=== PATIENT | male | born 1965 | race Hispanic/Latino ===

== ENCOUNTER 2019-09-17 08:34 | Inpatient (IN) | payer OTHER, SELFPAY ==
[2019-09-17] MEDS ORDERED: Acetaminophen 500 MG TAB ONE (09:03)
--- NOTE | 2019-09-17 09:44 | RAD ---
CHEST ONE VIEW: HISTORY: Shortness of breath. Cough. Sore throat. Fever. FINDINGS: Poor inspiration. Patchy alveolar, linear and ground glass opacity changes in the mid and lower lung zones. Heart size is at the upper range of normal. IMPRESSION: 1. Poor inspiration. 2. Patchy bilateral pneumonia, which certainly could represent atypical pneumonia including the viral pneumonias. POS: [facility]
[2019-09-17] MEDS ORDERED: Cefepime 2 GM VIAL ONE ×2 (09:47→09:53)
[2019-09-17] MEDS ORDERED: Azithromycin 500 MG VIAL ONE ×2 (09:47→09:53)
[2019-09-17] MEDS ORDERED: Ibuprofen 200 MG TAB ONE ×2 (09:47→09:53)
[2019-09-17 09:50] LABS: #Lymphocytes 1.3 thou/uL (1.20-3.40); #Monocytes 0.3 thou/uL (0.11-0.59); #Neutrophils 6.3 thou/uL (1.40-6.50); %Basophils 0.3 % (0.0-1.0); %Monocytes 3.9 % (0.0-10.0); %Neutrophils 79.8 % (42.0-75.0); Hemoglobin 15.6 g/dL (14.0-18.0); Mean Corpuscular HGB CONC 35.7 g/dL (32.0-36.0); Mean Corpuscular Volume 92.5 fL (78.0-98.0); Mean Platelet Volume 8.1 fL (7.4-10.4); Platelet Count 136 thou/uL (130-400); RBC Distribution Width 11.3 % (11.5-14.5); Red Blood Cell (RBC) Count 4.72 mill/uL (4.70-6.10); White Blood Cell (WBC) Count 7.8 thou/uL (4.8-10.8)
[2019-09-17] MEDS ORDERED: Albuterol 200 PUFF (6.7GM INHALER) ONE (09:50)
[2019-09-17 09:52] LABS: Base Excess-Venous 1.2 mmol/L (-2.0 to 3.0); Bicarbonate (HCO3v) 23.6 mmol/L (22.0-28.0); CO2 Tension (PvCO2) 30.7 mmHg (40.0-50.0); Calcium, Ionized 0.99 mmol/L (See Comments:); Chloride 99 mmol/L (98-107); Hemoglobin - Calc 15.3 g/dL (14.0-18.0); Potassium 3.8 mmol/L (3.5-5.1); Sodium 136 mmol/L (138-145); T. Carbon Dioxide 24.5 mmol/L (22.0-28.0); vO2 Saturation-calc 99.2 % (60.0-85.0)
[2019-09-17 10:11] LABS: ALT (SGPT) 33 U/L (8-55); AST (SGOT) 25 U/L (5-34); Albumin 4.2 g/dL (3.5-5.0); Alkaline Phosphatase 89 U/L (40-110); Anion Gap 17 mmol/L (10-20); BUN (Urea Nitrogen) 9 mg/dL (8.4-25.7); Bilirubin, Total 0.8 mg/dL (0.2-1.2); Calc. Creatinine Clearance 0 mL/min (70-130); Calcium 8.9 mg/dL (7.8-10.44); Carbon Dioxide 22 mmol/L (22-29); Chloride 100 mmol/L (98-107); Estimated GFR-MDRD Greater than 90; Globulin 3.9 g/dL (2.4-3.5); Glucose 243 mg/dL (70-105); Potassium 3.6 mmol/L (3.5-5.1); Protein, Total 8.1 g/dL (6.0-8.3); Sodium 135 mmol/L (136-145)
[2019-09-17 10:12] LABS: Bacteria/HPF None Seen HPF (None Seen); Bilirubin Negative (Negative); Blood, Urine Negative (Negative); Clarity Clear (Clear); Glucose, Urine (Dipstick) 500 mg/dL (Negative); Leukocyte Negative Leu/uL (Negative); Mucous/LPF 1+ LPF (<2+); Nitrite Negative (Negative); Protein, Urine (Dipstick) Greater than 600 mg/dL (Neg-Trace); RBC/HPF 0-3 HPF (0-3); Squamous Epithelial None Seen HPF (0-3); Urobilinogen Normal mg/dL (Less than 2)
[2019-09-17] MEDS ORDERED: Sodium Chloride 0.9% 1,000 ML IV SCH (10:15)
[2019-09-17] MEDS ORDERED: Ondansetron ODT 4 MG TAB SL PRN (10:15)
[2019-09-17] MEDS ORDERED: Acetaminophen 325 MG TAB PO PRN (10:15)
[2019-09-17] MEDS ORDERED: HYDROcodone/Acetaminophen 5/325 mg Tablet PO PRN ×3 (10:15→13:02)
[2019-09-17] MEDS ORDERED: Ondansetron PF 4 MG/2 ML Vial IVP PRN ×2 (10:15→13:02)
[2019-09-17 12:09] VITALS: BMI 28.3
[2019-09-17] MEDS ORDERED: Senokot S 8.6-50 MG TAB PO PRN (13:02)
[2019-09-17] MEDS ORDERED: Acetaminophen 650 MG Suppository PR PRN (13:02)
[2019-09-17] MEDS ORDERED: Ondansetron ODT 4 MG TAB PO PRN (13:02)
[2019-09-17] MEDS ORDERED: HumaLOG 300 UNITS/3 ML VIAL SC PRN ×2 (13:15)
[2019-09-17] MEDS ORDERED: Dextrose 50% Abboject 50 ML SYRINGE SLOW IVP PRN (13:15)
[2019-09-17] MEDS ORDERED: Dextrose 5% in Water 1,000 ML IV PRN (13:15)
--- NOTE | 2019-09-17 13:57 | HP ---
PRIMARY CARE PHYSICIAN: [place]. CHIEF COMPLAINT: Cough and shortness of breath. HISTORY OF PRESENT ILLNESS: This is a 54-year-old male with no past medical history, who comes in with 4-day history of cough, difficulty breathing, some central chest pain with a cough, and fever up to 102. The patient denies any sick contacts or known COVID contacts. He did present to the emergency room with an O2 saturation on room air of 88% and significant tachypnea up to 36 breaths per minute. He was noted to have some possible wheezing also by ER and he was given a couple of puffs of albuterol. The patient's temperature on presentation spiked to 102.7. This was treated with acetaminophen. He was also given some oxygen and felt much better. REVIEW OF SYSTEMS: CONSTITUTIONAL: See HPI. EYES: No double vision or blurry vision. ENT: No congestion, drainage, or sore throat. CARDIOVASCULAR: See HPI. No palpitations or racing heart. PULMONARY: See HPI. GASTROINTESTINAL: No abdominal pain. No nausea or vomiting. No diarrhea or constipation. GENITOURINARY: No dysuria or hematuria. MUSCULOSKELETAL: He has had some diffuse body aches. SKIN: No rashes or other lesions noted. NEUROLOGIC: No numbness, tingling, or focal weakness. PAST MEDICAL HISTORY: None. PAST SURGICAL HISTORY: Cholecystectomy. SOCIAL HISTORY: No tobacco, alcohol, or illicit drug use. He is . He is a full code. Should he be incapacitated, his would be his medical decision maker; her name is Cathryn Harrington. FAMILY HISTORY: No known family medical problems. ALLERGIES: NO KNOWN DRUG ALLERGIES. CURRENT MEDICATIONS: NyQuil p.r.n. PHYSICAL EXAMINATION: VITAL SIGNS: Blood pressure 120/70, pulse 80, respirations 24, O2 saturation 92% on room air, temperature 97.9. GENERAL: This is a well-developed, well-nourished male, in no acute distress. HEENT: Pupils are equal, round, and reactive to light. Oropharynx clear without lesions, erythema, or exudates. NECK: Supple. No lymphadenopathy. No thyroid nodules or enlargement. HEART: Regular rate and rhythm. No murmurs, rubs, or gallops. LUNGS: The patient has good breath sounds throughout, maybe an occasional wheeze now. No increased work of breathing. ABDOMEN: Soft, nontender to palpation. Normoactive bowel sounds. No hepatosplenomegaly or other masses. EXTREMITIES: No clubbing, cyanosis, or edema. SKIN: No rashes or other lesions noted. NEUROLOGIC: Intact strength and sensation in all extremities. No facial droop. PSYCHIATRIC: Alert and oriented x3. Normal mood and affect. LABORATORY DATA: CBC grossly within normal limits, though lymphocyte count is a little bit low at 16%, total lymphocytes 1300. Venous blood gas with good O2 level on nasal cannula oxygen. No acidosis. Complete metabolic panel is notable for a sodium of 135, glucose of 243; the rest of his CMP was normal. His lactic acid was normal. Urinalysis showed 500 glucose, positive for proteins and trace ketones, 4 to 6 white blood cells, no bacteria. Chest x-ray: I did review the chest x-ray done in the emergency room along with the radiologist's report. It does show bilateral patchy viral-appearing infiltrates consistent with viral pneumonia versus COVID pneumonia. COVID testing has been sent from the emergency room. ASSESSMENT: 1. Acute viral pneumonia with acute hypoxic respiratory failure, improved after inhaler and with some nasal cannula oxygen. The patient has symptoms consistent with a COVID-19 infection. We have sent off a swab to test for this and are putting him on COVID precautions. We will give oxygen as needed. Currently, he is off nasal cannula oxygen and breathing easily. Given his response to inhaler in the emergency room, I will give him albuterol 2 puffs every 6 hours as needed for coughing, wheezing, and shortness of breath. We will also give him some Tessalon Perles for the cough. We will watch him closely for any signs of deterioration. 2. Hyperglycemia without a diagnosis of diabetes. I suspect the patient has underlying diabetes mellitus type 2 from unknown duration. I will get a hemoglobin A1c on him and do fingerstick blood sugars q.a.c. and at bedtime with a low insulin sliding scale and we will also put him on a diabetic diet. 3. Gastrointestinal prophylaxis. We will put the patient on Pepcid twice a day. 4. Deep venous thrombosis prophylaxis. We will put the patient on Lovenox subcu. 5. Code Status: The patient is full code. Should he be incapacitated, his would be his medical decision maker. Her name is Cathryn Harrington. Job ID: [id number]
[2019-09-17] MEDS: Benzonatate 100 MG CAP PO SCH ×2 (15:52→20:24)
[2019-09-17] MEDS: Sodium Chloride 0.9% 1,000 ML IV SCH (15:53)
[2019-09-17] MEDS: Guaifenesin DM 100-10/5 ML UDCUP PO PRN (15:53)
[2019-09-17] MEDS: Acetaminophen 325 MG TAB PO PRN ×2 (15:53→20:35)
[2019-09-17] MEDS: Famotidine 20 MG TAB PO SCH (20:24)
[2019-09-18] MEDS: Acetaminophen 325 MG TAB PO PRN ×3 (00:04→08:54)
[2019-09-18] MEDS: Sodium Chloride 0.9% 1,000 ML IV SCH ×2 (05:23→08:54)
[2019-09-18 06:32] LABS: #Basophils 0.1 thou/uL (0.0-0.2); #Lymphocytes 1.2 thou/uL (1.20-3.40); #Monocytes 0.3 thou/uL (0.11-0.59); #Neutrophils 6.4 thou/uL (1.40-6.50); %Basophils 1.1 % (0.0-1.0); %Eosinophils 0.4 % (0.0-10.0); %Monocytes 4.2 % (0.0-10.0); %Neutrophils 79.3 % (42.0-75.0); Hemoglobin 13.3 g/dL (14.0-18.0); Mean Corpuscular HGB CONC 34.1 g/dL (32.0-36.0); Mean Corpuscular Hemoglobin 32.4 pg (27.0-31.0); Mean Platelet Volume 8.3 fL (7.4-10.4); Platelet Count 132 thou/uL (130-400); RBC Distribution Width 11.3 % (11.5-14.5); Red Blood Cell (RBC) Count 4.11 mill/uL (4.70-6.10); White Blood Cell (WBC) Count 8.1 thou/uL (4.8-10.8)
[2019-09-18 06:40] LABS: Hemoglobin A1c 8.2 % (4.0-6.0)
[2019-09-18 06:50] LABS: Anion Gap 14 mmol/L (10-20); BUN (Urea Nitrogen) 9 mg/dL (8.4-25.7); Calc. Creatinine Clearance 147 mL/min (70-130); Calcium 8.1 mg/dL (7.8-10.44); Carbon Dioxide 23 mmol/L (22-29); Chloride 108 mmol/L (98-107); Estimated GFR-MDRD Greater than 90; Glucose 158 mg/dL (70-105); Potassium 3.7 mmol/L (3.5-5.1); Sodium 141 mmol/L (136-145)
--- NOTE | 2019-09-18 07:29 | PDOC.HOSPP ---
- Subjective Encounter Date: 09/18/19 Encounter Time: 11:30 Subjective: Patient with continued cough, pain in right upper back and shoulder with cough, fever, and shortness of breath. Now requiring 2L NC O2. - Objective Vital Signs & Weight: Vital Signs (12 hours) Temp Pulse Resp BP BP Pulse Ox 09/18/19 05:31 99.3 F 81 20 139/77 95 09/18/19 00:02 100.0 F H 82 20 130/86 96 09/17/19 20:15 102.1 F H 92 20 146/75 H 91 L Weight Weight 169 lb 15.622 oz Result Diagrams: 09/18/19 06:12 09/18/19 06:12 Additional Labs: Accuchecks 09/18/19 09/17/19 09/17/19 05:24 20:34 17:31 POC Glucose 148 H 177 H 185 H Hospitalist ROS - Review of Systems Constitutional: reports: fever Respiratory: reports: cough, shortness of breath Cardiovascular: reports: chest pain. denies: palpitations, orthopnea Gastrointestinal: denies: nausea, vomiting, abdominal pain - Medication Medications: Active Medications Generic Name Dose Route Start Last Admin Trade Name Freq PRN Reason Stop Dose Admin Acetaminophen 650 mg 09/17/19 13:02 09/18/19 00:04 Tylenol PO 650 mg Q4H PRN Administration Headache/Fever/Mild Pain (1-3) Benzonatate 200 mg 09/17/19 15:00 09/17/19 20:24 Tessalon PO 200 mg TID MYESHA Administration Famotidine 20 mg 09/17/19 21:00 09/17/19 20:24 Pepcid PO 20 mg BID MYESHA Administration Guaifenesin/Dextromethorphan 15 ml 09/17/19 13:02 09/17/19 15:53 Robitussin Dm PO 15 ml Q4H PRN Administration Cough Sodium Chloride 1,000 mls @ 50 mls/hr 09/17/19 13:02 09/18/19 05:23 Normal Saline 0.9% IV 1,000 mls .Q20H MYESHA Administration Insulin Human Lispro 0 units 09/17/19 13:15 09/17/19 17:31 Humalog SC 2 unit .MILD SLIDING SCALE PRN Administration Mild Correctional Scale - Exam General Appearance: NAD, awake alert ENT: moist mucosa Heart: RRR, no murmur, no gallops, no rubs Respiratory: CTAB, no wheezes, no rales, no ronchi Respiratory - other findings: recurrent coughing fits when taking deep breaths or talking Gastrointestinal: soft, non-tender, non-distended, normal bowel sounds Psychiatric: normal affect, normal behavior, A&O x 3 Hosp A/P (1) Viral pneumonia Code(s): J12.9 - VIRAL PNEUMONIA, UNSPECIFIED Status: Acute (2) Acute respiratory failure with hypoxia Code(s): J96.01 - ACUTE RESPIRATORY FAILURE WITH HYPOXIA Status: Acute (3) Diabetes mellitus type 2 in nonobese Code(s): E11.9 - TYPE 2 DIABETES MELLITUS WITHOUT COMPLICATIONS Status: Acute - Plan HbA1c elevated above 8, patient has diabetes. Will start Metformin. Supportive care, awaiting COVID-19 testing, likely positive. DVT proph: Lovenox GI proph: Pepcid
[2019-09-18] MEDS: Guaifenesin DM 100-10/5 ML UDCUP PO PRN (08:53)
[2019-09-18] MEDS: Famotidine 20 MG TAB PO SCH ×2 (08:54→21:15)
[2019-09-18] MEDS: metFORMIN 500 MG TAB PO SCH ×2 (08:54→17:38)
[2019-09-18] MEDS: Benzonatate 100 MG CAP PO SCH ×3 (08:54→21:15)
[2019-09-18] MEDS: Enoxaparin Sodium 40 MG/0.4 ML SYRINGE SC SCH (08:54)
[2019-09-18] MEDS: PROVENTIL INHALER 6.7 G (200 INHALATIONS) INH PRN ×2 (13:11→22:39)
[2019-09-18] MEDS: HYDROcodone/Acetaminophen 5/325 mg Tablet PO PRN (22:37)
[2019-09-19] MEDS: Guaifenesin DM 100-10/5 ML UDCUP PO PRN (00:29)
[2019-09-19] MEDS: HYDROcodone/Acetaminophen 5/325 mg Tablet PO PRN (05:45)
[2019-09-19] MEDS: PROVENTIL INHALER 6.7 G (200 INHALATIONS) INH PRN (05:45)
[2019-09-19] MEDS: Sodium Chloride 0.9% 1,000 ML IV SCH (05:55)
--- NOTE | 2019-09-19 07:49 | PDOC.HOSPP ---
- Subjective Encounter Date: 09/19/19 Encounter Time: 10:00 Subjective: SOB stable, cough improved some, no more chest/back pain. - Objective Vital Signs & Weight: Vital Signs (12 hours) Temp Pulse Resp BP Pulse Ox 09/19/19 05:45 70 20 95 09/19/19 05:34 98.3 F 70 20 143/81 H 95 09/19/19 00:35 98 F 69 22 H 130/77 98 09/18/19 22:39 84 09/18/19 21:35 98.7 F 87 24 H 146/89 H 93 L 09/18/19 20:00 93 L Weight Weight 169 lb 15.622 oz I&O: 09/18/19 09/19/19 09/20/19 06:59 06:59 06:59 Intake Total 1200 Output Total 650 Balance 550 Result Diagrams: 09/18/19 06:12 09/18/19 06:12 Additional Labs: Accuchecks 09/19/19 09/18/19 09/18/19 05:54 21:23 17:47 POC Glucose 147 H 120 H 160 H 09/18/19 13:21 POC Glucose 127 H Hospitalist ROS - Review of Systems Constitutional: denies: fever, chills Respiratory: reports: cough, shortness of breath Cardiovascular: denies: chest pain, palpitations, orthopnea Gastrointestinal: denies: nausea, vomiting, abdominal pain - Medication Medications: Active Medications Generic Name Dose Route Start Last Admin Trade Name Freq PRN Reason Stop Dose Admin Acetaminophen 650 mg 09/17/19 13:02 09/18/19 08:54 Tylenol PO 650 mg Q4H PRN Administration Headache/Fever/Mild Pain (1-3) Hydrocodone Bitart/Acetaminophen 1 tab 09/17/19 13:02 09/19/19 05:45 [place] 5/325 PO 1 tab Q4H PRN Administration Moderate Pain (4-6) Albuterol Sulfate 2 puff 09/17/19 13:07 09/19/19 05:45 Proventil Hfa INH 2 puff Q6H PRN Administration SOB &/or Wheezing Benzonatate 200 mg 09/17/19 15:00 09/18/19 21:15 Tessalon PO 200 mg TID MYESHA Administration Enoxaparin Sodium 40 mg 09/18/19 09:00 09/18/19 08:54 Lovenox SC 40 mg 0900 MYESHA Administration Famotidine 20 mg 09/17/19 21:00 09/18/19 21:15 Pepcid PO 20 mg BID MYESHA Administration Guaifenesin/Dextromethorphan 15 ml 09/17/19 13:02 09/19/19 00:29 Robitussin Dm PO 15 ml Q4H PRN Administration Cough Sodium Chloride 1,000 mls @ 50 mls/hr 09/17/19 13:02 09/19/19 05:55 Normal Saline 0.9% IV Not Given .Q20H MYESHA Insulin Human Lispro 0 units 09/17/19 13:15 09/17/19 17:31 Humalog SC 2 unit .MILD SLIDING SCALE PRN Administration Mild Correctional Scale Metformin HCl 500 mg 09/18/19 08:00 09/18/19 17:38 Glucophage PO 500 mg BID-WM MYESHA Administration Sodium Chloride 10 ml 09/18/19 09:00 09/18/19 21:16 Flush - Normal Saline IVF 10 ml Q12HR MYESHA Administration - Exam General Appearance: NAD, awake alert ENT: moist mucosa Heart: RRR, no murmur, no gallops, no rubs Respiratory - other findings: bibasilar crackles, not deep inspiration due to triggering coughing Gastrointestinal: soft, non-tender, non-distended, normal bowel sounds Psychiatric: normal affect, normal behavior, A&O x 3 Hosp A/P (1) Viral pneumonia Code(s): J12.9 - VIRAL PNEUMONIA, UNSPECIFIED Status: Acute (2) Acute respiratory failure with hypoxia Code(s): J96.01 - ACUTE RESPIRATORY FAILURE WITH HYPOXIA Status: Acute (3) Diabetes mellitus type 2 in nonobese Code(s): E11.9 - TYPE 2 DIABETES MELLITUS WITHOUT COMPLICATIONS Status: Acute - Plan HbA1c elevated above 8, patient has diabetes. Blood sugars improved in diabetic diet and Metformin. COVID-19 positive. with symptoms also. Patient needing low dose O2, supportive therapy. Hopefully will improve over the next week. Monitor closely for deterioration. DVT proph: Lovenox GI proph: Pepcid
[2019-09-19] MEDS: Famotidine 20 MG TAB PO SCH ×2 (10:11→21:04)
[2019-09-19] MEDS: Enoxaparin Sodium 40 MG/0.4 ML SYRINGE SC SCH (10:11)
[2019-09-19] MEDS: Benzonatate 100 MG CAP PO SCH ×3 (10:11→21:04)
[2019-09-19] MEDS: metFORMIN 500 MG TAB PO SCH ×2 (10:11→17:24)
[2019-09-20] MEDS: Sodium Chloride 0.9% 1,000 ML IV SCH ×3 (01:05→19:40)
--- NOTE | 2019-09-20 07:56 | PDOC.HOSPP ---
- Subjective Encounter Date: 09/20/19 Encounter Time: 09:30 Subjective: Patient with continued cough, worse when ambulated. SOB unchanged. No fever. Overall doing ok. - Objective Vital Signs & Weight: Vital Signs (12 hours) Temp Pulse Resp BP Pulse Ox 09/20/19 04:55 98 09/20/19 00:00 98.9 F 70 24 H 143/80 H 09/19/19 20:00 98.9 F 72 20 142/75 H 95 Weight Weight 169 lb 15.622 oz I&O: 09/19/19 09/20/19 09/21/19 06:59 06:59 06:59 Intake Total 1200 Output Total 650 Balance 550 Result Diagrams: 09/18/19 06:12 09/18/19 06:12 Additional Labs: Accuchecks 09/19/19 09/19/19 09/19/19 21:16 16:15 14:04 POC Glucose 191 H 126 H 134 H Hospitalist ROS - Review of Systems Constitutional: denies: fever, chills Respiratory: reports: cough, SOB with excertion. denies: shortness of breath Cardiovascular: denies: chest pain, palpitations, orthopnea Gastrointestinal: denies: nausea, vomiting, abdominal pain - Medication Medications: Active Medications Generic Name Dose Route Start Last Admin Trade Name Freq PRN Reason Stop Dose Admin Acetaminophen 650 mg 09/17/19 13:02 09/18/19 08:54 Tylenol PO 650 mg Q4H PRN Administration Headache/Fever/Mild Pain (1-3) Hydrocodone Bitart/Acetaminophen 1 tab 09/17/19 13:02 09/19/19 05:45 [place] 5/325 PO 1 tab Q4H PRN Administration Moderate Pain (4-6) Albuterol Sulfate 2 puff 09/17/19 13:07 09/19/19 05:45 Proventil Hfa INH 2 puff Q6H PRN Administration SOB &/or Wheezing Benzonatate 200 mg 09/17/19 15:00 09/19/19 21:04 Tessalon PO 200 mg TID MYESHA Administration Enoxaparin Sodium 40 mg 09/18/19 09:00 09/19/19 10:11 Lovenox SC 40 mg 0900 MYESHA Administration Famotidine 20 mg 09/17/19 21:00 09/19/19 21:04 Pepcid PO 20 mg BID MYESHA Administration Guaifenesin/Dextromethorphan 15 ml 09/17/19 13:02 09/19/19 00:29 Robitussin Dm PO 15 ml Q4H PRN Administration Cough Sodium Chloride 1,000 mls @ 50 mls/hr 09/17/19 13:02 09/20/19 01:05 Normal Saline 0.9% IV Not Given .Q20H MYESHA Insulin Human Lispro 0 units 09/17/19 13:15 09/17/19 17:31 Humalog SC 2 unit .MILD SLIDING SCALE PRN Administration Mild Correctional Scale Metformin HCl 500 mg 09/18/19 08:00 09/19/19 17:24 Glucophage PO 500 mg BID-WM MYESHA Administration Sodium Chloride 10 ml 09/18/19 09:00 09/19/19 21:05 Flush - Normal Saline IVF 10 ml Q12HR MYESHA Administration - Exam General Appearance: NAD, awake alert ENT: moist mucosa Heart: RRR, no murmur, no gallops, no rubs Respiratory: no wheezes, no ronchi Respiratory - other findings: some crackles in bilateral bases Gastrointestinal: soft, non-tender, non-distended, normal bowel sounds Psychiatric: normal affect, normal behavior, A&O x 3 Hosp A/P (1) COVID-19 Code(s): U07.1 - COVID-19 Status: Acute (2) Viral pneumonia Code(s): J12.9 - VIRAL PNEUMONIA, UNSPECIFIED Status: Acute (3) Acute respiratory failure with hypoxia Code(s): J96.01 - ACUTE RESPIRATORY FAILURE WITH HYPOXIA Status: Acute (4) Diabetes mellitus type 2 in nonobese Code(s): E11.9 - TYPE 2 DIABETES MELLITUS WITHOUT COMPLICATIONS Status: Acute - Plan HbA1c elevated above 8, patient has diabetes. Blood sugars improved with diabetic diet and Metformin. COVID-19 positive. with symptoms also. Patient needing low dose O2, supportive therapy. Hopefully will improve over the next week. Monitor closely for deterioration. DVT proph: Lovenox GI proph: Pepcid
[2019-09-20] MEDS: metFORMIN 500 MG TAB PO SCH ×2 (08:38→17:21)
[2019-09-20] MEDS: Guaifenesin DM 100-10/5 ML UDCUP PO PRN (08:38)
[2019-09-20] MEDS: Famotidine 20 MG TAB PO SCH ×2 (08:38→19:39)
[2019-09-20] MEDS: Enoxaparin Sodium 40 MG/0.4 ML SYRINGE SC SCH ×2 (08:38→09:07)
[2019-09-20] MEDS: Benzonatate 100 MG CAP PO SCH ×3 (08:38→19:39)
[2019-09-21] MEDS: Famotidine 20 MG TAB PO SCH ×2 (08:11→21:30)
[2019-09-21] MEDS: Benzonatate 100 MG CAP PO SCH ×3 (08:11→21:30)
[2019-09-21] MEDS: metFORMIN 500 MG TAB PO SCH ×2 (08:12→15:36)
[2019-09-21] MEDS: Enoxaparin Sodium 40 MG/0.4 ML SYRINGE SC SCH (08:12)
--- NOTE | 2019-09-21 15:11 | PDOC.HOSPP ---
- Subjective Encounter Date: 09/21/19 Encounter Time: 15:00 Subjective: f/u for COVID viral infection tx supportively with bronchodilators but still with significant cough and SOB with minimal movement. Remains off O2 per nursing. - Objective Vital Signs & Weight: Vital Signs (12 hours) Temp Pulse Resp BP Pulse Ox 09/21/19 12:45 98.3 F 69 16 135/79 94 L 09/21/19 08:20 98.2 F 86 18 138/77 94 L 09/21/19 04:18 97.9 F 67 18 94 L 09/21/19 04:00 94 L Weight Weight 169 lb 15.622 oz I&O: 09/20/19 09/21/19 09/22/19 06:59 06:59 06:59 Intake Total 1510 Output Total 200 Balance 1310 Result Diagrams: 09/18/19 06:12 09/18/19 06:12 Additional Labs: Accuchecks 09/21/19 09/21/19 09/20/19 12:39 03:49 19:55 POC Glucose 109 128 H 174 H 09/20/19 17:30 POC Glucose 133 H Hospitalist ROS - Medication Medications: Active Medications Generic Name Dose Route Start Last Admin Trade Name Freq PRN Reason Stop Dose Admin Acetaminophen 650 mg 09/17/19 13:02 09/18/19 08:54 Tylenol PO 650 mg Q4H PRN Administration Headache/Fever/Mild Pain (1-3) Hydrocodone Bitart/Acetaminophen 1 tab 09/17/19 13:02 09/19/19 05:45 [place] 5/325 PO 1 tab Q4H PRN Administration Moderate Pain (4-6) Albuterol Sulfate 2 puff 09/17/19 13:07 09/19/19 05:45 Proventil Hfa INH 2 puff Q6H PRN Administration SOB &/or Wheezing Benzonatate 200 mg 09/17/19 15:00 09/21/19 08:11 Tessalon PO 200 mg TID MYESHA Administration Enoxaparin Sodium 40 mg 09/18/19 09:00 09/21/19 08:12 Lovenox SC Not Given 0900 MYESHA Famotidine 20 mg 09/17/19 21:00 09/21/19 08:11 Pepcid PO 20 mg BID MYESHA Administration Guaifenesin/Dextromethorphan 15 ml 09/17/19 13:02 09/19/19 00:29 Robitussin Dm PO 15 ml Q4H PRN Administration Cough Sodium Chloride 1,000 mls @ 50 mls/hr 09/17/19 13:02 09/20/19 19:40 Normal Saline 0.9% IV 1,000 mls .Q20H MYESHA Administration Insulin Human Lispro 0 units 09/17/19 13:15 09/17/19 17:31 Humalog SC 2 unit .MILD SLIDING SCALE PRN Administration Mild Correctional Scale Metformin HCl 500 mg 09/18/19 08:00 09/21/19 08:12 Glucophage PO 500 mg BID-WM MYESHA Administration Sodium Chloride 10 ml 09/18/19 09:00 09/21/19 08:12 Flush - Normal Saline IVF Not Given Q12HR MYESHA - Exam General Appearance: NAD, awake alert Eye: PERRL, anicteric sclera ENT: normocephalic atraumatic, no oropharyngeal lesions Neck: supple, symmetric, no JVD, no thyromegaly, no lymphadenopathy Heart: RRR, no murmur, no gallops, no rubs, normal peripheral pulses Respiratory: tachypneic Respiratory - other findings: few rhonchi and exp wheeze Gastrointestinal: soft, non-tender, non-distended, normal bowel sounds, no palpable masses Extremities: no cyanosis, no clubbing, no edema Skin: normal turgor, no lesions, no rashes Neurological: cranial nerve grossly intact, no new deficit Musculoskeletal: normal tone, normal strength, no muscle wasting Psychiatric: normal affect, A&O x 3 Hosp A/P (1) COVID-19 Code(s): U07.1 - COVID-19 Status: Acute Plan: Supportive mgmt, resp isolation, bronchodilators (2) Viral pneumonia Code(s): J12.9 - VIRAL PNEUMONIA, UNSPECIFIED Status: Acute (3) Acute respiratory failure with hypoxia Code(s): J96.01 - ACUTE RESPIRATORY FAILURE WITH HYPOXIA Status: Acute Plan: Wean off O2 as tolerated, change Albuterol MDI 2puffs q4h (4) Diabetes mellitus type 2 in nonobese Code(s): E11.9 - TYPE 2 DIABETES MELLITUS WITHOUT COMPLICATIONS Status: Chronic - Plan out of bed/ambulate, DVT proph w/SCDs Stable currently Change Albuterol MDI 2 puffs q4h OOB/ambulate Saline lock IVF's Respiratory Isolation Likely home in 24h
[2019-09-21] MEDS ORDERED: PROVENTIL INHALER 6.7 G (200 INHALATIONS) INH SCH (15:15)
[2019-09-21] MEDS: Albuterol 200 PUFF (6.7GM INHALER) INH SCH ×2 (17:50→23:19)
[2019-09-22] MEDS: Albuterol 200 PUFF (6.7GM INHALER) INH SCH ×2 (02:30→06:46)
[2019-09-22] MEDS: Famotidine 20 MG TAB PO SCH (07:29)
[2019-09-22] MEDS: metFORMIN 500 MG TAB PO SCH (07:29)
[2019-09-22] MEDS: Benzonatate 100 MG CAP PO SCH (07:29)
[2019-09-22 07:50] VITALS: BP 144/79; TEMP 98.6
[2019-09-22] MEDS: Enoxaparin Sodium 40 MG/0.4 ML SYRINGE SC SCH (08:53)
--- NOTE | 2019-09-23 00:55 | PQF ---
JOVAN CHRISTINE CHARLES [id number] CLINICAL DOCUMENTATION CLARIFICATION FORM: POST DISCHARGE Addendum to original discharge summary date: ____ Late entry note date: __ DATE: 09/23/19 ATTN:Matthew Eng Please exercise your independent, professional judgment in responding to the clarification form. Clinical indicators are provided on the bottom of this form for your review Can you please further clarify if Sepsis is ruled in or ruled out? Sepsis [ ] Ruled in diagnosis [ ] Continue to treat [ ] Resolved [ x ] Ruled out diagnosis [ ] Cannot rule out diagnosis [ ] Other diagnosis [ ] Unable to determine In addition, please specify: Present on Admission (POA): [ ] Yes [ x ] No [ ] Unable to determine For continuity of documentation, please document condition throughout progress notes and discharge summary. Thank You. CLINICAL INDICATORS - SIGNS / SYMPTOMS / LABS ED Provide pg.2- Febrile, temperature of 102.7 ED Provider pg.4- Sepsis H and P pg.1- Significant tachypnea up to 36 breaths per minute H and P pg.2- Vital signs: BP 120/70, pulse 80, respiration 24, Temp 97.9 Laboratory- WBC 7.8, 8.1 RISK FACTORS Acute viral pneumonia- H and P pg.2 Acute hypoxic respiratory failure- H and P pg.2 COVID19- Hospitalist PN pg.2 TREATMENTS Chest X ray 09/16 IV Fluids-MAR Respiratory Isolation- Hospitalist PN pg.5 Oxygen Supplementation Azithromycin 500mg IV- MAR Cefepime HCl 2g IV- MAR (This form is maintained as a part of the permanent medical record) 2014 [employer] All Rights Reserved [email or web address]
--- NOTE | 2019-09-23 01:16 | DIS ---
DATE OF ADMISSION: 09/17/2019 DATE OF DISCHARGE: 09/22/2019 DISCHARGE DIAGNOSES: 1. COVID-19 viral pneumonia, improved. 2. Acute hypoxic respiratory failure, improved. 3. Diabetes mellitus type 2, new diagnosis. CONSULTATIONS: None. PERTINENT LABORATORY AND X-RAY FINDINGS: Hemoglobin A1c 8.2. Lactic acid level 2.0. CBC within normal limits. COVID-19 PCR positive, 09/17/2019. Blood cultures x2 dated 09/17/2019 showed no growth at 48 hours. Influenza A and B antigen negative, 09/17/2019. Urine culture dated 09/17/2019 showed 50-75 colonies of mixed skin and enteric uri. Portable chest x-ray dated 09/17/2019 showed patchy bilateral infiltrates consistent with pneumonia. HOSPITAL COURSE: The patient was initially admitted after presenting with increased cough and shortness of breath with fever up to 102 degrees Fahrenheit. The patient was evaluated including chest imaging showing bilateral infiltrates. Atypical in presentation concerning for potential viral pneumonia. The patient underwent COVID-19 PCR, which was positive as stated previously and placed on respiratory isolation. The patient did receive general pulmonary supportive management in addition to oxygen supplementation and bronchodilator therapy with albuterol metered-dose inhaler. The patient slowly weaned off oxygen supplementation and overall symptomatology improved with supportive management. The patient was also noted with hyperglycemia during the hospital course with hemoglobin A1c confirming mild diabetes mellitus. The patient was initiated on metformin 500 mg b.i.d. and may need additional titration on an ongoing basis after discharge. Overall, the patient did clinically stabilize with general pulmonary supportive management. I have examined the patient at the time of discharge and discussed followup instructions. The patient verbalized understanding and agreement ready for discharge, 09/22/2019. DISCHARGE MEDICATIONS: 1. Albuterol metered dose inhaler, 2 puffs inhaled q.4 hours p.r.n. 2. Metformin 500 mg p.o. b.i.d. FOLLOWUP: The patient may follow up with [facility] in 7 days. CONDITION ON DISCHARGE: Stable. ACTIVITY: Ad-guicho. SPECIAL INSTRUCTIONS: The patient given instructions regarding ongoing quarantine measures and wearing of face mask after returning home. DIET: ADA and heart healthy. CODE STATUS: Full. DISPOSITION: To home, 09/22/2019. TIME SPENT: Total time preparing and coordinating discharge, 35 minutes. Job ID: [id number]
== END 2019-09-22 12:53 | disposition home or self-care (01) | DRG 177 ==
LOC: ERS 08:34 → T4-B 10:17
PROVIDERS: ADMIT Emergency Medicine; ATTEND Family Medicine
PROC: 8E0ZXY6 Isolation (ICD-10-PCS; principal; 2019-09-17)
DX: U07.1 COVID-19 (principal); J12.89 Other viral pneumonia; J96.01 Acute respiratory failure with hypoxia; E11.65 Type 2 diabetes mellitus with hyperglycemia; Z90.49 Acquired absence of other specified parts of digestive tract
CPT/HCPCS: 36415; 36416; 71045; 80048; 80053; 81003; 81015; 82330; 82803; 83036; 83605; 85025; 87040; 87086; 87635; 87804; 94664; 96365; J0456; J0692; J1650; U0002